=== PATIENT | female | born 1990 | race Caucasian/White ===

== ENCOUNTER 2018-01-21 10:04 | Day surgery (SDC) | payer OTHER ==
[2018-01-21] VITALS (7 sets, daily range): BP systolic 97–112; BP diastolic 68–83; PULSE 73–92; TEMP 97.5–98.3
[~2018-01-21] VITALS: Ht 165.1 cm; Wt 64.0 kg
[2018-01-21] MEDS ORDERED: PROZAC40 MG PO (10:26)
[2018-01-21] MEDS ORDERED: NEXPLANON68 MG ID (10:27)
[2018-01-21] MEDS ORDERED: REMICADE V100 MG/VIA IV (10:27)
== END 2018-01-21 13:58 | disposition home or self-care (01) ==
LOC: SDCO 10:04
DX: K50.80 Crohn's disease of both small and large intestine without complications (principal); K91.89 Other postprocedural complications and disorders of digestive system; K92.1 Melena; F41.9 Anxiety disorder, unspecified; F32.9 Major depressive disorder, single episode, unspecified; D50.9 Iron deficiency anemia, unspecified; Z87.19 Personal history of other diseases of the digestive system
CPT/HCPCS: J2250; J3010; J7030